=== PATIENT | male | born 1945 | race Caucasian/White ===

== ENCOUNTER → 2018-04-02 | Day surgery (SDC) | payer OTHER ==
[2018-03-26 16:37] VITALS: Ht 182.9 cm; Wt 97.7 kg
[~2018-04-02] VITALS: Ht 182.9 cm; Wt 97.7 kg
[~2018-04-02] MED LIST: AMLO-114 PO; CHOL1000 PO; FLUT115A INH; IRON1CAP2 PO; LIDOCAINE HCL 2% 2 ML VIAL (20MG/ML) ONE; LOSA50TA6 PO; OMEG10007 PO; PROPOFOL IV EMULSION 10 MG/ML 20 ML VIAL ONE; RANI150T85 PO; SODIUM CHLORIDE 0.9% 500ML 500 ML IV ONE
--- NOTE | 2018-04-02 14:27 | Endo History and Physical ---
History & Physical Date of Service: April 02, 2018. Chief Complaint: Dysphagia Referring Physician: Dr Dotson History of Present Illness 73 yo presenting for evaluation of EGD for history of esophagitis s/p Dipak. Now asymptomatic. Past Surgical History Hx Cardiac Surgery: No Hx Internal Defibrillator: No Hx Pacemaker: No Hx Abdominal Surgery: No Hx of Implantable Prosthesis: No Hx Post-Op Nausea and Vomiting: No Hx Cancer Surgery: No Hx Thoracic Surgery: No Hx Orthopedic: No Hx Urinary Tract Surgery: No Family History None Social History Smoking Status: Former Smoker Hx Substance Use: No Hx Alcohol Use: Yes (OCCASIONAL) Allergies Coded Allergies: SYDNEY Inhibitors (Verified Allergy, Severe, ANAPHYLAXIS, 03/26/18) Current Medications Reported Home Medications Medications Dose Route/Sig Max Daily Dose Days Date Category [place]-3 (Fish Oil) 1 Ea Cap 4 Cap PO DAILY 03/26/18 Reported Iron Complex (Iron Combinations) 1 Cap Cap 65 Mg PO DAILY 03/26/18 Reported Vitamin D3 (Cholecalciferol) 1,000 Unit Tab 1 Tab PO DAILY 30 03/26/18 Reported Zantac (Ranitidine HCl) 150 Mg Tab 150 Mg PO HS 03/26/18 Reported Advair Hfa 115/21 Mcg (Fluticasone-Salmeterol 115/21 Mcg) 1 Aer Aer 2 Puff INH BID 03/26/18 Reported Cozaar (Losartan Potassium) 50 Mg Tab 1 Tab PO DAILY 30 03/26/18 Reported Norvasc (Amlodipine Besylate) 10 Mg Tab 10 Mg PO DAILY 03/26/18 Reported Vital Signs Weight (Kilograms): 97.73 Height (Feet): 6 Height (Inches): 0 Date Time Temp Pulse Resp B/P (MAP) Pulse Ox O2 Delivery O2 Flow Rate FiO2 04/02/18 13:38 36.8 72 18 146/79 (101) 98 Room Air Physical Exam General Appearance: WD/WN, no apparent distress Respiratory/Chest: Respiratory effort: no dyspnea Auscultation: breath sounds normal, CTA except as noted Cardiovascular: Apical Impulse: not displaced Heart Auscultation: RRR, normal S1, normal S2 Abdomen: Bowel Sounds: normal Inspection & Palpation: soft, non-distended Assessment and Plan 73 yo presenting for evaluation of EGD for history of esophagitis s/p Dipak. Now asymptomatic.
--- NOTE | 2018-04-02 14:50 | GI REPORT ---
Patient Name: Jonathon Brooke Procedure Date: 04/02/2018 2:25 PM Date of : 1945 Admit Type: Outpatient Age: 73 Gender: Male Attending MD: Robert Phan MD Procedure: Upper GI endoscopy Providers: Robert Phan MD Referring MD: Jay Dotson Indications: Follow-up of esophagitis Medicines: Monitored Anesthesia Care Complications: No immediate complications. Estimated blood loss: None. Estimated Blood Loss: Estimated blood loss: none. Procedure: Pre-Anesthesia Assessment: - Pre-Anesthesia Assessment: - Prior to the procedure, a History and Physical was performed, and patient medications, allergies and sensitivities were reviewed. The patient's tolerance of previous anesthesia was reviewed. Please see [facility] for complete details. - The risks and benefits of the procedure and the sedation options and risks were discussed with the patient. All questions were answered and informed consent was obtained. - Patient identification and proposed procedure were verified prior to the procedure by the physician and the nurse. The procedure was verified in the pre-procedure area in the procedure room. After obtaining informed consent, the endoscope was passed carefully and meticuously under direct vision and only advanced when the lumen was clearly identified, C02 insuflation was utilized throughout the entirity of the procedure. Throughout the procedure, the patient's blood pressure, pulse, and oxygen saturations were monitored continuously. After obtaining informed consent, the endoscope was passed under direct vision. Throughout the procedure, the patient's blood pressure, pulse, and oxygen saturations were monitored continuously. The scope was introduced through the mouth, and advanced to the second part of duodenum. The upper GI endoscopy was accomplished without difficulty. The patient tolerated the procedure well. Findings: The Z-line was irregular. Biopsies were taken with a cold forceps for histology. Evidence of a Toupet fundoplication was found in the lower third of the esophagus. The wrap appeared intact. The entire examined stomach was normal. The examined duodenum was normal. Impression: - Z-line irregular. Biopsied. - A Toupet fundoplication was found. The wrap appears intact. - Normal stomach. - Normal examined duodenum. Recommendation: - Await pathology results. - Discharge patient to home (with escort). - Return to referring physician as previously scheduled. - Continue present medications. Robert Phan MD 04/02/2018 2:50:01 PM This report has been signed electronically. Note Initiated On: 04/02/2018 2:25 PM Number of Addenda: 0 I attest to the content of the Intraoperative Record and orders documented therein, exceptions below {[id number]}
--- NOTE | 2018-04-02 14:51 | Discharge Instructions ---
Endoscopy Patient Instructions Date / Procedure(s) Performed April 02, 2018. EGD Allergy Information Coded Allergies: SYDNEY Inhibitors (Verified Allergy, Severe, ANAPHYLAXIS, 03/26/18) Discharge Date / Findings April 02, 2018. No inflammation Your Gastro/esophageal junction was a bit irregular, biopsies were taken to exclude Valladares's Otherwise, exam was normal. Provider Instructions Activity Restrictions - No exercising or heavy lifting for 24 hours. - Do not drink alcohol the day of the procedure. - Do not drive a car or operate machinery until the day after the procedure. - Do not make any important decisions or sign important papers in 24 hours after the procedure. Following Day: - Return to full activity which may include returning to work/school. Diet Start your diet with liquids and light foods (jello, soup, juice, toast). Then eat your usual diet if not nauseated. Treatment For Common After Affects For mild abdominal pain, bloating, or excessive gas: - Rest - Eat lightly - Lie on right side Follow-Up Information Follow-up with Dr Dotson as scheduled Anesthesia Information What You Should Know You have had a procedure that required some medicine to reduce anxiety and discomfort. This treatment is called moderate sedation. After receiving the treatment, you may be sleepy, but you will be able to breathe on your own. The effects of the treatment may last for several hours. Follow these instructions along with Activity/Diet recommendations noted above: * Do NOT do anything where dizziness or clumsiness would be dangerous. * Rest quietly at home today, then you can be up and about tomorrow. * Have a responsible person stay with you the rest of today. * You may have had an I.V. today. If so, you may take the dressing off later today. Recommendations Call your doctor if: * Trouble breathing * Continuous vomiting for more than 24 hours * Temperature above 101 degrees * Severe abdominal pain or bloating * Pain not relieved by pain medicine ordered * There is increased drainage or redness from any incision * A large amount of rectal bleeding greater than 2-3 tablespoons. (If you had a polyp/s removed or have hemorrhoids, a small amount of blood - from the rectum is to be expected.) * You have any unanswered questions or concerns. IN THE EVENT OF A SERIOUS EMERGENCY, GO TO THE NEAREST EMERGENCY ROOM Your discharge instructions were prepared by provider Robert Phan. Patient Instructions Signature Page Jonathon Brooke Patient (or Guardian) Signature/Date: I have read and understand the instructions given to me by my caregivers. Caregiver/RN/Doctor Signature/Date: The above-named patient and/or guardian has received patient instructions on this date. + Original Patient Signature Page (only) stays with chart. Please make copy for patient.
--- NOTE | 2018-04-02 15:04 | Anesthesiology Progress Note ---
Anesthesia Post Op Note Date & Time April 02, 2018 at 15:03 Vital Signs Pain Intensity: 0 Vital Signs Past 12 Hours Date Time Temp Pulse Resp B/P (MAP) Pulse Ox O2 Delivery O2 Flow Rate FiO2 04/02/18 14:47 63 16 132/68 (89) 96 Room Air 04/02/18 13:38 36.8 72 18 146/79 (101) 98 Room Air Notes Mental Status: alert / awake / arousable, participated in evaluation Pt Amnestic to Procedure: Yes Nausea / Vomiting: adequately controlled Pain: adequately controlled Airway Patency, RR, SpO2: stable & adequate BP & HR: stable & adequate Hydration State: stable & adequate Anesthetic Complications: no major complications apparent
[2018-04-02 15:17] VITALS: BP 156/70; PULSE 61; O2SAT 98
== END | disposition home or self-care (01) ==
LOC: C.GI 13:00
PROVIDERS: ATTEND Internal Medicine
DX: R13.10 Dysphagia, unspecified (principal); Z87.891 Personal history of nicotine dependence; Z88.8 Allergy status to other drugs, medicaments and biological substances; J44.9 Chronic obstructive pulmonary disease, unspecified; I12.9 Hypertensive chronic kidney disease with stage 1 through stage 4 chronic kidney disease, or unspecified chronic kidney disease; K21.9 Gastro-esophageal reflux disease without esophagitis; M19.90 Unspecified osteoarthritis, unspecified site; N18.4 Chronic kidney disease, stage 4 (severe)